=== PATIENT | male | born 1995 | race Caucasian/White ===

== ENCOUNTER 2017-05-15 10:14 | Emergency (ER) | payer OTHER ==
[~2017-05-15] VITALS: Ht 180.3 cm; Wt 72.5 kg
[2017-05-15 10:16] VITALS: TEMP 36.4; Ht 180.3 cm; Wt 72.5 kg
[2017-05-15] MEDS ORDERED: LIDO/EPINEPHRINE/SOD BICARB 20 ML VIAL INFIL ONE (10:45)
--- NOTE | 2017-05-15 11:07 | EMERGENCY ROOM VISIT NOTE ---
ED Visit Note First contact with patient: 10:24 CHIEF COMPLAINT: Nasal laceration one hour ago HISTORY OF PRESENT ILLNESS: Patient is a 22-year-old white male who presents the emergency department for evaluation of a laceration to the bridge of his nose that he sustained at home roughly 1 hour ago. He was messing around with some friends, they dared him to head butt a ramp. He was wearing his glasses at the time. He struck his head on the lamp, he is unsure whether he cut his nose on the metal part of the lamp or if it was from his glasses. There is no epistaxis, and he denies any nasal pain, bruising or difficulty breathing. He is a laceration to the upper bridge of the nose, bleeding has been controlled. There was no loss of consciousness, vomiting, or unusual behavior afterwards. No other injuries are noted. REVIEW OF SYSTEMS: Review of systems as per HPI. All other systems reviewed were negative. At least 6 systems reviewed. PMH: Electronic medical records are reviewed and summarized as above/below. See Problem List. He is unsure of his last tetanus, but reports that routine vaccinations are current, therefore his tetanus should be up-to-date. SOCIAL HISTORY: Patient is a college student from [place] who lives with roommates locally. Social EtOH. PHYSICAL EXAM: Vital Signs: Reviewed Nurse's notes. The patient is alert, oriented, and coherent. Pupils are round, equal, and react briskly to light. There is a laceration over the bridge of the nose whose edges are gaping apart. It measures 1 cm in length. There is no active bleeding and no foreign material in the wound. EMERGENCY DEPARTMENT COURSE: The wound was cleaned with Betadine and irrigated with saline. Sterile technique was used and the wound was anesthetized with 1% buffered lidocaine with epinephrine. The wound edges were then approximated with 4, 6-0 nylon sutures. Bacitracin was applied. Wound care measures were outlined. He is traveling to [place] tomorrow, and will be out of the country until the . He was educated on suture removal technique, and was advised that he could have this done while away, or when he returns home. I do not suspect nasal fracture, facial bone fracture or closed head injury. Medication reconciliation: I attest that I have personally reviewed the patient' s current medication list. Blood pressure screening : Patient was found to have normal blood pressure on screening and does not require follow-up. Current/Historical Medications No Active Prescriptions or Reported Meds Allergies Coded Allergies: No Known Allergies (Unverified , 05/15/17) Vital Signs Date Time Temp Pulse Resp B/P (MAP) Pulse Ox O2 Delivery O2 Flow Rate FiO2 05/15/17 11:19 66 16 125/77 99 05/15/17 10:16 36.4 74 16 126/85 98 Room Air Medications Administered Medications (Trade) Dose Ordered Sig/Stuart Route Start Time Stop Time Status Last Admin Dose Admin Lidocaine/ Epinephrine (Buffered Xylocaine/ Epinephrine 1% Inj) 20 ml NOW ONCE INFIL 05/15/17 10:45 05/15/17 10:46 DC 05/15/17 10:47 20 ML Departure Information Impression Primary Impression: Nasal laceration Prescriptions No Active Prescriptions or Reported Meds Referrals No Doctor, Assigned (PCP) Patient Instructions My [facility] Additional Instructions Keep wound clean and dry. Do not allow any crusting or dried blood to accumulate on sutures. Clean gently with mild soap and water daily. Do not immerse in standing water for 48 hours. Use an antibiotic ointment for 3-4 days , then let wound dry. If he will be in the sun, wear a hat, and to not apply antibiotic ointment, apply sunscreen instead. Suture removal in 6-7 days. Seek immediate medical attention for any signs of infection (increasing redness , swelling, drainage). Ice and elevate for swelling and pain. Ibuprofen 600 mg and Tylenol 1000 mg every 6 hrs for pain. Problem Qualifiers Primary Impression: Nasal laceration Encounter type: initial encounter Qualified Codes: S01.21XA - Laceration without foreign body of nose, initial encounter
[2017-05-15 11:19] VITALS: BP 125/77; PULSE 66; O2SAT 99
== END 2017-05-15 11:20 | disposition home or self-care (01) ==
LOC: C.EDB 10:16
DX: S01.21XA Laceration without foreign body of nose, initial encounter (principal); W22.09XA Striking against other stationary object, initial encounter; Y92.009 Unspecified place in unspecified non-institutional (private) residence as the place of occurrence of the external cause